=== PATIENT | male | born 2000 | race African-American/Black ===

== ENCOUNTER 2022-02-28 22:34 | Emergency (ER) | payer SELFPAY ==
[2022-02-28] MEDS ORDERED: Ondansetron ODT 4 MG TAB ONE (22:58)
== END 2022-02-28 23:01 | disposition home or self-care (01) ==
LOC: BURERS 22:34
DX: R19.7 Diarrhea, unspecified (principal)
CPT/HCPCS: 99283; Q0162

== ENCOUNTER 2022-05-26 20:54 | Emergency (ER) | payer OTHER, SELFPAY | END 2022-05-26 21:46 | disposition home or self-care (01) | LOC: BURERS 20:54 | DX: U07.1 COVID-19 (principal) | CPT/HCPCS: 99283; U0003; U0005 ==